=== PATIENT | male | born 1965 | race Caucasian/White ===

== ENCOUNTER → 2023-07-24 07:18 | Outpatient (REF) | payer OTHER, SELFPAY | LOC: RAD 07:18 | PROVIDERS: ATTENDING PHYSICIAN Family Medicine | DX: Z87.891 Personal history of nicotine dependence (principal); I10 Essential (primary) hypertension; R06.02 Shortness of breath | CPT/HCPCS: 71271; 93005 ==

== ENCOUNTER → 2023-08-12 08:53 | Outpatient (REF) | payer OTHER, SELFPAY | LOC: RCS 08:53 | PROVIDERS: ATTENDING PHYSICIAN Family Medicine | DX: I10 Essential (primary) hypertension (principal); Z87.891 Personal history of nicotine dependence; R06.02 Shortness of breath | CPT/HCPCS: 93017; 93350 ==

== ENCOUNTER → 2023-09-23 07:54 | Outpatient (REF) | payer OTHER, SELFPAY | LOC: RSP 07:54 | PROVIDERS: ATTENDING PHYSICIAN Family Medicine | DX: J43.2 Centrilobular emphysema (principal) | CPT/HCPCS: 94727; 94729; 88738; 94060 ==

== ENCOUNTER → 2024-10-07 09:50 | Outpatient (REF) | payer OTHER, SELFPAY | LOC: RAD 09:50 | PROVIDERS: ATTENDING PHYSICIAN Family Medicine | DX: Z87.891 Personal history of nicotine dependence (principal) | CPT/HCPCS: 71271 ==